=== PATIENT | male | born 1995 | race Hispanic/Latino ===

== ENCOUNTER 2021-06-03 08:07 | Emergency (ER) | payer OTHER ==
[~2021-06-03] VITALS: Ht 180.3 cm; Wt 106.6 kg
[2021-06-03 08:19] VITALS: BP 155/105
--- NOTE | 2021-06-03 08:20 | ER.PDOC ---
General Chief Complaint: Requesting Medical Care Stated Complaint: CHEST DISCOMFORT Time seen by MD: 08:13 Source: patient Exam Limitations: no limitations History of Present Illness Initial Comments This 26-year-old male comes in with complaint of a sharp stabbing "needlelike" sticks to his chest. He shows the left upper anterior chest wall where the pain is. Is a fairly discrete isolated area. This pain does not radiate anywhere. He does not have any associated symptoms such as shortness of breath diaphoresis nausea or vomiting. He does have the risk factor of hypertension. He was on it a blood pressure medicine (name not remembered) for about 2 to 3 years. He is came off of the blood pressure medicine when he was 18. He does not have a PCP. 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 These are at least 260 feet to 360 feet in height. He does not get any chest pains during that type of exertion. He has no other acute symptoms or concerns. Patient indicated that his pain was a 4/10. Severity/Quality: moderate, sharp, stabbing Radiation: no radiation Activities at Onset: none (Patient was just driving to work when this sharp stabbing pain started so, he literally just turned around and came back here for evaluation.) Prior CP/Workup: No Prior Chest Pain Modifying Factors: other (nothing) Nitro Today/Relief: No Nitro Taken Today Aspirin Today: No Aspirin Today Associated Symptoms: denies symptoms Allergies: Coded Allergies: No Known Allergies (Unverified , 06/03/21) Past Medical History Medical History: hypertension Surgical History: no surgical history Social History Smoking: non-smoker Alcohol Use: none Drug Use: other Cardiovascular: see HPI All Other Systems: Reviewed and Negative Physical Exam General Appearance: No Apparent Distress, WD/WN HEENT: PERRL/EOMI, Normal ENT Inspection, TMs Normal, Pharynx Normal Neck: Non-Tender, Full Range of Motion, Supple, Normal Inspection Cardiovascular: Normal Peripheral Pulses, Regular Rate, Rhythm, No Edema, No Gallop, No JVD, No Murmur Gastrointestinal: Normal Bowel Sounds, No Organomegaly, No Pulsatile Mass, Non Tender, Soft 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 (06/03/21 08:11) Helicobacter Pylori (06/03/21 08:11) D-Dimer (06/03/21 08:11) Ekg-Routine (06/03/21 08:11) Vital Signs Date Time Temp Pulse Resp B/P (MAP) Pulse Ox O2 Delivery O2 Flow Rate FiO2 06/03/21 08:34 98.4 57 18 164/63 (96) 98 Room Air 06/03/21 08:19 98.4 66 18 155/105 (122) 98 Room Air 06/03/21 08:19 98.4 66 18 06/03/21 08:19 98.4 66 18 98 Laboratory Tests Test 06/03/21 08:20 White Blood Count 6.5 10^3/uL (4.5-11.0) Red Blood Count 4.53 10^6/uL (4.50-5.90) Hemoglobin 14.8 g/dL (13.9-16.3) Hematocrit 44.0 % (37.0-53.0) Mean Corpuscular Volume 97.1 fL (78-100) Mean Corpuscular Hemoglobin 32.7 pg (26-34) Mean Corpuscular Hemoglobin Concent 33.6 g/dL (33-36.5) Red Cell Distribution Width 12.1 % (11.5-14.5) Platelet Count 199 10^3/uL (150-400) Mean Platelet Volume 11.7 fL (7.8-11.0) H Neutrophils (%) (Auto) 63.5 % (41.0-85.0) Lymphocytes (%) (Auto) 21.3 % (24.0-44.0) L Monocytes (%) (Auto) 7.5 % (5.0-12.0) Neutrophils # (Auto) 4.2 10^3/uL (1.8-7.7) Lymphocytes # (Auto) 1.39 10^3/uL1 (1.0-4.8) Monocytes # (Auto) 0.5 10^3/uL (0.3-0.8) Absolute Immature Granulocyte (auto 0.03 10^3 u/L (0-2) Absolute Eosinophils (auto) 0.4 10^3/uL (0.0-0.2) H Immature Granulocytes % 0.50 % (0.00-0.50) Eosinophils % 6.6 % (0.0-5.0) H Basophils % 0.6 % (0.0-0.2) H Basophils # 0.0 10^3/uL (0.0-0.1) Prothrombin Time 10.4 SEC (9.6-12.0) Prothrombin Time INR (Non-Therap) 1.0 Activated Partial Thromboplast Time 24.0 SEC (24.67-30.72) D-Dimer 0.34 mg/L (0.19-0.49) Sodium Level 140 mmol/L (132-145) Potassium Level 3.9 mmol/L (3.6-5.2) Chloride Level 103.0 mmol/L (96-109) Carbon Dioxide Level 28.2 mmol/L (20.0-32) Anion Gap 12.7 Blood Urea Nitrogen 15 mg/dL (7-18) Creatinine 0.95 mg/dL (0.59-1.40) Estimated GFR () 116.9 (>/=60) Est GFR (CKD-EPI)(Non-Afr Citizen Of [place]) 96.6 (>/=60) BUN/Creatinine Ratio 15.0 Glucose Level 110 mg/dL (70-110) Calcium Level 8.6 mg/dL (8.4-10.5) Total Bilirubin 0.4 mg/dL (0.2-1.0) Aspartate Amino Transferase (AST) 21 U/L (0-35) Alanine Aminotransferase (ALT) 44 U/L (12-78) Alkaline Phosphatase 87 U/L (50-136) Total Creatine Kinase 106 U/L (39-308) Creatine Kinase MB 0.7 ng/mL (0.5-3.6) Troponin I < 0.02 ng/mL (0.00-0.05) Pro-B-Type Natriuretic Peptide 7 pg/mL (0-125) Total Protein 7.5 g/dL (6.4-8.2) Albumin 3.8 g/dL (3.4-5.0) Globulin 3.7 Albumin/Globulin Ratio 1.027 Helicobacter pylori Screen NEGATIVE (NEGATIVE) Progress Progress Laboratory studies back: EKG completely normal with normal intervals normal axis does have bradycardia at 55 beats a minute but it is a normal EKG. His metabolic panel was completely normal. His CBC completely normal. His serology was negative for H. pylori. His coags are all completely normal. His troponin is less than 0.02 or, completely normal.Given this person's age negative studies and symptomatology, there is nothing here that would suggest this is coronary artery disease causing his pain. EKG/XRAY/CT/US EKG: NSR (Normal sinus rhythm, normal axis, intervals, ST waves.Normal EKG) ER DEPART Departure Time of Disposition: 09:07 Disposition: 01 HOME / SELF CARE / HOMELESS Impression: Primary Impression: Non-cardiac chest pain Condition: Improved Referrals: PCP,UNKNOWN (PCP) PRIMARY CARE PROVIDER Duration or Time Spent with Pa: 20m RK ASH MD Jun 03, 2021 08:20
--- NOTE | 2021-06-03 08:24 | NUR ---
ARRIVAL PT ARRIVED TO ED WITH C/O FEELING LIKE NEEDLES ARE STABBING HIS HEART SINCE WAKING THIS MORNING. PT REPORTS HE HAS HAD ALOT OF WORK STRESS. PT DENIES ANY RADIATION OF PAIN. BEDSIDE MONITORS APPLIED. VITAL SIGNS STABLE. BED IN LOW LOCKED POSITION.
[2021-06-03 08:26] LABS: BASOPHIL % 0.6 % (0.0-0.2); EOSINOPHIL # 0.4 10^3/uL (0.0-0.2); EOSINOPHIL % 6.6 % (0.0-5.0); LYMPHOCYTES # 1.39 10^3/uL1 (1.0-4.8); LYMPHOCYTES % 21.3 % (24.0-44.0); MEAN CORP HGB 32.7 pg (26-34); MONOCYTES # 0.5 10^3/uL (0.3-0.8); MONOCYTES % 7.5 % (5.0-12.0); NEUTROPHIL # 4.2 10^3/uL (1.8-7.7); NEUTROPHILS % 63.5 % (41.0-85.0); PLATELET COUNT 199 10^3/uL (150-400); RED CELL DISTRIBUTION WIDTH 12.1 % (11.5-14.5)
--- NOTE | 2021-06-03 08:31 | PCM.EKG ---
[facility] Test Date: 2021-06-03 Test Time: 08:22:16 Pat Name: JENNIFER PORTILLO Department: Patient ID: [facility]-[id number] Room: Gender: M Biochemist: MAIA DILL : 1995 Requested By: KARRI ASH Order Number: [id number] Reading MD: Karri Ash Measurements Intervals [place] Rate: 51 P: 53 MO: 135 QRS: 67 QRSD: 94 T: 21 QT: 446 QTc: 411 Interpretive Statements Sinus rhythm No previous ECG available for comparison Electronically Signed On 06-03-2021 12:46:52 CDT by Karri Ash Please click the below link to view image of tracing.
[2021-06-03 08:34] VITALS: BP 164/63
[2021-06-03 08:49] LABS: ALANINE AMINOTRANSFERASE(ML) 44 U/L (12-78); ALKALINE PHOSPHATASE 87 U/L (50-136); ASPARTATE AMINO TRANSFERASE 21 U/L (0-35); CALCIUM 8.6 mg/dL (8.4-10.5); CARBON DIOXIDE 28.2 mmol/L (20.0-32); GLUCOSE 110 mg/dL (70-110)
[2021-06-03 09:08] VITALS: BP 161/91
== END 2021-06-03 09:10 | disposition home or self-care (01) ==
LOC: ER 08:07
DX: R07.89 Other chest pain (principal); I10 Essential (primary) hypertension
CPT/HCPCS: 36415; 80053; 82550; 82553; 83880; 84484; 85025; 85379; 85610; 85730; 86677; 93005; 99284